=== PATIENT | female | born 1990 | race Asian ===

== ENCOUNTER 2018-01-27 10:19 | Emergency (ER) | payer OTHER ==
[~2018-01-27] VITALS: Ht 167.6 cm; Wt 141.1 kg
[2018-01-27] MEDS ORDERED: AMLODIPINE BESYLATE PO (10:41)
[2018-01-27] MEDS ORDERED: ZANTAC 75 PO (10:42)
[2018-01-27 11:24] LABS: PLATELET COUNT 205 K/uL (152-353)
[2018-01-27 11:30] LABS: POTASSIUM 3.3 mmol/L (3.6-5.2)
[2018-01-27 14:15] VITALS: BP 151/89; TEMP 98.2
== END 2018-01-27 14:15 | disposition home or self-care (01) ==
LOC: ED 10:19
PROVIDERS: Family Medicine
DX: R16.0 Hepatomegaly, not elsewhere classified (principal); E87.6 Hypokalemia; R10.84 Generalized abdominal pain
CPT/HCPCS: 36415; 80053; 81000; 81025; 85027; 87205; 96374; 96375; 99284; J1170; J2405; Q9963